=== PATIENT | male | born 1970 | race Caucasian/White ===

== ENCOUNTER → 2021-07-11 | Outpatient (CLI) | payer BC | LOC: HEART 5 12:35 | DX: R06.02 Shortness of breath (principal) | CPT/HCPCS: 94060; 94729 ==

== ENCOUNTER 2021-08-04 22:14 | Inpatient (IN) | payer BC ==
[~2021-08-04] VITALS: Ht 180.3 cm; Wt 74.8 kg
[~2021-08-04 22:14] MED LIST: PREDNISONE10 MG PO
[2021-08-05] MEDS ORDERED: PAROXETINE HCL20 MG PO (00:55)
[2021-08-05] MEDS ORDERED: ONDANSETRON HCL8 MG PO (00:55)
[2021-08-05] MEDS ORDERED: ASPIRIN EC81 MG PO (00:58)
[2021-08-05] MEDS ORDERED: DIPHENOXYLATE-1 EACH PO (00:58)
[2021-08-05 03:07] LABS: HEMOGLOBIN 12.6 gm/dl (14.0-17.5); RED BLOOD COUNT 4.1 M/UL (4.20-5.50); WHITE BLOOD COUNT 10.3 K/UL (4.5-11.0)
[2021-08-05 03:44] LABS: BUN/CREATININE RATIO 12 (0-10)
[2021-08-05] MEDS ORDERED: PREDNISONE10 MG PO (10:25)
--- NOTE | 2021-08-05 15:21 | NUR ---
FAMILY VOICES CONCERN ABOUT PATIENT NUMEROUS PVC'S AND LOW BLOOD PRESSURE. REASSURE FAMILY PATIENT IS TO BE SEEN BY CARDIOLOGY, THEY ARE AWARE OF THIS PATIENT AND HIS CIRCUMSTANCES. KEYSHA POSEY ON FLOOR AWARE OF CONSULT AND WILL BE SEEING THIS PATIENT.
--- NOTE | 2021-08-05 18:45 | NUR ---
PATIENT UNHOOKS HIMSELF FROM HIS MONITOR AND LEAVES THE FLOOR WITH HIS . HE DOESNT REPORT TO NURSE IS WHEREABOUTS AND LEAVES WITHOUT A BOTTOM WORKER. PATIENT AND FAMILY EDUCATED ON THE RISK OF LEAVING THE FLOOR UNMONITORED, VERBALIZE UNDERSTANDING
[2021-08-06 04:36] LABS: HEMOGLOBIN 13.5 gm/dl (14.0-17.5); RED BLOOD COUNT 4.33 M/UL (4.20-5.50); WHITE BLOOD COUNT 10.6 K/UL (4.5-11.0)
[2021-08-06 04:58] LABS: BUN/CREATININE RATIO 18 (0-10)
[2021-08-07 03:27] LABS: HEMOGLOBIN 13.3 gm/dl (14.0-17.5); RED BLOOD COUNT 4.47 M/UL (4.20-5.50); WHITE BLOOD COUNT 10.9 K/UL (4.5-11.0)
[2021-08-07 04:32] LABS: BUN/CREATININE RATIO 16 (0-10)
[2021-08-07] MEDS ORDERED: LEVOFLOXACIN500 MG PO (11:20)
[2021-08-07] MEDS ORDERED: HYDROCODON-ACE1 EAC4 PO (11:20)
[2021-08-07] MEDS ORDERED: CLINDAMYCIN HC300 MG PO (11:20)
[2021-08-08 03:26] LABS: HEMOGLOBIN 13.7 gm/dl (14.0-17.5); RED BLOOD COUNT 4.33 M/UL (4.20-5.50)
[2021-08-08 03:29] LABS: WHITE BLOOD COUNT 15.3 K/UL (4.5-11.0)
[2021-08-08 03:54] LABS: BUN/CREATININE RATIO 16 (0-10)
[2021-08-08] MEDS ORDERED: KEPPRA 500 MG500 MG PO (08:45)
[2021-08-08] MEDS ORDERED: ATORVASTATIN CA20 MG PO (08:45)
[2021-08-08] MEDS ORDERED: LISINOPRIL5 MG PO (08:45)
[2021-08-08] MEDS ORDERED: LOPRESSOR 25 MG25 MG PO (08:45)
== END 2021-08-08 11:16 | disposition home or self-care (01) | DRG 223 ==
LOC: PROG CARE 22:14
PROVIDERS: Internal Medicine; ADMIT Internal Medicine
PROC: 4A023N7 Measurement of Cardiac Sampling and Pressure, Left Heart, Percutaneous Approach (ICD-10-PCS; 2021-08-06)
PROC: B2111ZZ Fluoroscopy of Multiple Coronary Arteries using Low Osmolar Contrast (ICD-10-PCS; 2021-08-06)
PROC: B2161ZZ Fluoroscopy of Right and Left Heart using Low Osmolar Contrast (ICD-10-PCS; 2021-08-06)
PROC: B2151ZZ Fluoroscopy of Left Heart using Low Osmolar Contrast (ICD-10-PCS; 2021-08-06)
PROC: 0JH608Z Insertion of Defibrillator Generator into Chest Subcutaneous Tissue and Fascia, Open Approach (ICD-10-PCS; principal; 2021-08-07)
PROC: 02HK3KZ Insertion of Defibrillator Lead into Right Ventricle, Percutaneous Approach (ICD-10-PCS; 2021-08-07)
DX: I25.10 Atherosclerotic heart disease of native coronary artery without angina pectoris (principal); I21.A1 Myocardial infarction type 2; S32.029A Unspecified fracture of second lumbar vertebra, initial encounter for closed fracture; I47.2 Ventricular tachycardia; G40.909 Epilepsy, unspecified, not intractable, without status epilepticus; F41.8 Other specified anxiety disorders; F17.210 Nicotine dependence, cigarettes, uncomplicated; I10 Essential (primary) hypertension; Z96.651 Presence of right artificial knee joint; S30.810A Abrasion of lower back and pelvis, initial encounter; D64.9 Anemia, unspecified; S31.010A Laceration without foreign body of lower back and pelvis without penetration into retroperitoneum, initial encounter; K21.9 Gastro-esophageal reflux disease without esophagitis; I49.3 Ventricular premature depolarization; S01.01XA Laceration without foreign body of scalp, initial encounter; I25.5 Ischemic cardiomyopathy; W01.0XXA Fall on same level from slipping, tripping and stumbling without subsequent striking against object, initial encounter; Z86.16 Personal history of COVID-19; Z82.49 Family history of ischemic heart disease and other diseases of the circulatory system; Z98.890 Other specified postprocedural states; Z85.850 Personal history of malignant neoplasm of thyroid; Z85.118 Personal history of other malignant neoplasm of bronchus and lung; Z79.82 Long term (current) use of aspirin; Z79.899 Other long term (current) drug therapy; Z88.5 Allergy status to narcotic agent
CPT/HCPCS: ECHO; 33249; 36415; 71045; 72100; 80048; 80053; 80061; 82550; 82553; 83605; 83735; 84100; 84439; 84443; 84484; 85025; 85027; 85610; 85730; 93005; 93306; 93620; 96372; 96374; 96375; 96376; 99152; 99153; A6212; C1721; C1730; C1766; C1769; C1887; C1894; C1895; C1898; G0378; G0379; J0690; J1200; J1644; J1650; J1953; J2250; J3010; J3370; J7030; J7040; J7050; Q9965; Q9967